=== PATIENT | male | born 1990 | race Caucasian/White ===

== ENCOUNTER 2017-03-26 11:02 | Emergency (ER) | payer SELFPAY ==
[~2017-03-26] VITALS: Ht 170.2 cm; Wt 60.0 kg
[2017-03-26] MEDS ORDERED: BUPR1FIL7 SL (11:31)
[2017-03-26] MEDS ORDERED: OXYcodone/APAP 10/325MG TABLET ONE (11:35)
[2017-03-26] MEDS ORDERED: KETOROLAC 30 MG/1 ML ONE (11:36)
[2017-03-26] MEDS ORDERED: KETOROLAC 60 MG/2 ML IM ONE (12:00)
[2017-03-26] MEDS ORDERED: OXYcodone/APAP 10/325MG TABLET PO ONE (12:00)
[2017-03-26 12:15] VITALS: BP 119/86
== END 2017-03-26 12:18 | disposition home or self-care (01) ==
LOC: ED 12:12
DX: M54.5 Low back pain (principal); G89.29 Other chronic pain; Z76.0 Encounter for issue of repeat prescription; F11.23 Opioid dependence with withdrawal
CPT/HCPCS: 96372; 99283; J1885